=== PATIENT | male | born 1965 | race Caucasian/White ===

== ENCOUNTER → 2023-05-22 | Outpatient (CLI) | payer OTHER ==
--- NOTE | 2023-05-22 15:59 | P.SLEEP ---
History of Present Illness DATE: 05/22/2023 CONSULTATION/NEW PATIENT EVALUATION HISTORY OF PRESENT ILLNESS/SLEEP-WAKE EVALUATION: 58 year old gentleman had been evaluated in the sleep center for possible obstructive sleep apnea hypopnea syndrome. Patient has history of obstructive sleep apnea diagnosed more than 2 [place] At that time he was started on treatment with CPAP, but secondary to insurance problems returned CPAP unit. SLEEP SCHEDULE: Usually sleep schedule from 11 PM to 5:30 AM on weekdays and to to 8 AM on weekend. FALLING ASLEEP: Sometimes patient has difficulties to fall asleep. DURING SLEEP: Patient has multiple awakenings from sleep up to 6 times with episodes of weakness stop breathing during the sleep by his and gasping for air. Positive history of nocturia 4 times during the night. Positive history of restless leg symptoms and moving legs during the night. No history of hypnogogical hallucinations, sleep paralysis, or cataplexy. DURING THE DAY/WAKE STATE: During the day patient may fill episodes of anxiety. [place] sleepiness scale is 1. Usually patient doesn't take naps. PAST MEDICAL HISTORY: Hypertension, coronary artery disease, diabetes mellitus, hyperlipidemia. PAST SURGICAL HISTORY: Stent insertions to coronary arteries. MEDICATIONS: Isosorbide 60 mg once a day, metoprolol 25 mg twice a day, clopidogrel once a day, lisinopril 20 mg once a day, rosuvastatin 20 mg once a day, glipizide 5 mg once a day, metformin 1000 mg twice a day, tamsulosin 0.4 mg once a day. SOCIAL HISTORY: Positive history of smoking in the past, weight 5 years ago, no alcohol consumption.. FAMILY HISTORY: Heart problems. REVIEW OF SYSTEMS: Multiple awakenings from sleep with episodes of stop breathing. No fevers. No double vision. No recent chest pain. No shortness of breath. No abdominal pain. No bleeding episodes. No blood in urine. No seizure episodes. PHYSICAL EXAMINATION: GENERAL: A pleasant patient without any distress. VITAL SIGNS: BP 111/73 , HR 73 , RR 16 , weight 229.8 pounds, height 5 foot 7-1/4 inches, body mass index 35.6 . HEENT: PERRLA, EOMI. Evaluation of oropharynx showed tongue protrudes midline, low position of soft palate Mallampati 4. NECK: Supple. No JVD. Thyroid is not palpable. 19 inches in circumference. LUNGS: Clear to percussion and to auscultation. Good air exchange. No wheezing or rhonchi. HEART: S1, S2 regular. No murmurs, gallops or rubs. ABDOMEN: Soft and nontender. Bowel sounds are present. No organomegaly appreciated. EXTREMITIES: No clubbing or cyanosis. PHOTO EDITOR: Awake, alert, and oriented x3. Cranial nerves 2 to 7 intact. There is no fasciculation or atrophy noted. No focal deficits observed. ASSESSMENT: 1. Multiple awakenings from sleep with witnessed episodes of sleep apnea, history of obstructive sleep apnea in the past, similar low position of soft palate Mallampati 4, extremely wide neck 19 inches. Obstructive sleep apnea hypopnea syndrome. 2. Obesity BMI 35.6. 3. Hypertension. 4. History of coronary artery disease, status post stent insertions. 5 hyperlipidemia. 6 . Diabetes mellitus. 7. Restless leg symptoms. 8. Possible periodic limb movements. 9 . Status post surgical treatment for rotator cuff. PLAN: 1. Polysomnography for evaluation of patient's breathing during sleep. 2. CPAP/BiPAP titration if sleep study confirms obstructive sleep apnea- hypopnea syndrome. 3. Preferable position during sleep on the side. 4. No driving if patient feels any sleepiness. Patient is aware of civil and criminal liability for unsafe driving. 5. Sleep hygiene with regular sleep time for at least 7.5-8 hours. 6. Watching and losing weight. Thank you very much for referring this patient for consultation. Sincerely, Alexandre Robledo MD, PhD, FAASM. Diplomat of [place] [employer], Sleep Medicine Board by [place] [employer] [place] [employer] Data Warehouse Developer of [facility] - Sleep Note Sleep Note: Temperature: Pulse Rate: Respiratory Rate: Blood Pressure: SpO2: Height: Weight: BMI: Neck Circumference:
== END ==
LOC: 3 N SLEEP 15:16
PROVIDERS: ATTEND Internal Medicine
DX: G47.33 Obstructive sleep apnea (adult) (pediatric) (principal); I10 Essential (primary) hypertension; I25.10 Atherosclerotic heart disease of native coronary artery without angina pectoris; E66.9 Obesity, unspecified; E78.5 Hyperlipidemia, unspecified; E11.9 Type 2 diabetes mellitus without complications; G47.61 Periodic limb movement disorder; Z98.890 Other specified postprocedural states; Z87.891 Personal history of nicotine dependence; Z79.84 Long term (current) use of oral hypoglycemic drugs; Z79.02 Long term (current) use of antithrombotics/antiplatelets
CPT/HCPCS: 99202

== ENCOUNTER 2023-07-03 19:29 | Outpatient (CLI) | payer OTHER ==
--- NOTE | 2023-07-04 17:41 | P.PCN ---
Description of Procedure: POLYSOMNOGRAPHY REPORT PROCEDURE(S)/DATE(S): Polysomnography 07/03/2023 CLINICAL: Patient has been seen in the sleep center for evaluation of obstructive sleep apnea-hypopnea syndrome. Please see my consultation. Sleep study has been done for evaluation of patient breathing during the sleep. PROCEDURE: The standard montage for clinical polysomnography included the electroencephalogram, the electrooculogram, the mentalis surface electromyography and Lead II cardiography. The respiratory battery consisted of measurements of nasal/buccal air flow, pressure transducer measurements from nose, thoracic and/or abdominal effort and intercostal surface electromyography. Video monitoring has been done to check for any parasomnia events. Nocturnal oxyhemoglobin saturations were obtained by finger oximetry. Step-velazquez titration with positive airway pressure was utilized to control the respiratory events, if necessary. RESULTS: During the diagnostic sleep study sleep efficiency was extremely short 37.1 %. Latency to sleep onset was acceptable 10 min. Sleep architecture gentry wed stage NI was extremely high 38.4 %, Delta sleep was absent 0 %, REM sleep was extremely short 7.5 %. Respiratory channel showed 5 obstructive apneas, 2 mixed apneas, 13 central apneas, 21 hypopneas with lowest oxygen level 88%. Total apnea hypopnea index was 16.7. Heart rate was in the range between 49 and 58, average 52. EMG showed 111 periodic limb movements per hour with 00 is better micro-arousals per hour. IMPRESSIONS: 1. Moderate Obstructive sleep apnea hypopnea syndrome. 2. Severe periodic limb movements have been documented. Please see other impressions from consultation PLAN: 1. The patient will have PAP titration for correction of respiratory abnormalities during the sleep. 2. Losing weight program. 3. Sleep hygiene with regular time in bed for at least 7-1/2 hours. 4. No driving if feeling sleepiness. 5. Please check iron profile including ferritin level. Low level of iron may increase the risk for periodic limb movements. Thank you very much for allowing me to participate in the management of your patient. Sincerely, Alexandre Robledo MD, PhD, FAASM. Diplomat of [place] [employer], Sleep Medicine Board by [place] [employer] Backend Java Developer of [facility] [place]
== END 2023-07-04 04:30 | disposition home or self-care (01) ==
LOC: 3 N SLEEP 19:29
PROVIDERS: ATTEND Internal Medicine
DX: G47.33 Obstructive sleep apnea (adult) (pediatric) (principal); G47.61 Periodic limb movement disorder
CPT/HCPCS: 95810

== ENCOUNTER 2023-08-20 19:45 | Outpatient (CLI) | payer OTHER ==
--- NOTE | 2023-08-21 13:44 | P.PCN ---
Description of Procedure: CLINICAL: Titration with positive air pressure has been done for correction of respiratory abnormalities during sleep. DESCRIPTION OF PROCEDURE: The standard montage for clinical polysomnography included the electroencephalogram, the electrocardiogram, the mentalis surface electromyography and Lead II cardiography. The respiratory battery consisted of measurements of nasal /buccal air flow, pressure transducer measurements from the nose, thoracic and /or abdominal effort and intercostal surface electromyography. Video monitoring has been done to check for any parasomnia events. Nocturnal oxyhemoglobin saturations were obtained by finger oximetry. Step-velazquez titration with positive airway pressure was utilized to control respiratory events. Raw data of sleep recording has been reviewed and is adequate. RESULTS: Sleep efficiency was extremely short 44.7%. Latency to sleep onset was significantly long 68.0 minutes.]. Sleep architecture showed stage N1 was normal 8.5%, Delta sleep was absent 0%, REM sleep was absent 0%. Heart rate was minimum 58 BPM, maximum 67 BPM, average 62 BPM. EMG showed 0 periodic limb movements per hour. PAP titration have been done with CPAP up to the pressure 8 cm H2O. The best results were at the pressure 8-9 cm H2O. Apnea hypopnea index reduced to 0. IMPRESSION: 1. Obstructive sleep apnea hypopnea syndrome on controle with PAP treatment. 2. No periodic limb movements have been documented. Please see other impressions from consultation. PLAN: 1. The patient will have treatment with positive air pressure equipment with the level of pressure AutoPAP 6-10 cm H2O and should use it every night for the whole night. 2. Watching and losing weight. 3. Sleep hygiene with regular time in bed for at least 8 hours. 4. No driving if feeling any sleepiness. 5. I will see the patient for follow up visit to explain the results of the test, recommendations, check compliance with treatment and make any necessary adjustment related to mask fitting, pressure and humidification. Thank you very much for allowing me to participate in the management of your patient. Sincerely, Alexandre Robledo MD, PhD, FAASM Diplomat of [place] [employer] Sleep Medicine Board of [place] [employer] Manager Audio of [facility] [place]
== END 2023-08-21 03:45 | disposition home or self-care (01) ==
LOC: 3 N SLEEP 19:45
PROVIDERS: ATTEND Internal Medicine
DX: G47.33 Obstructive sleep apnea (adult) (pediatric) (principal)
CPT/HCPCS: 95811

== ENCOUNTER → 2023-12-04 | Outpatient (CLI) | payer OTHER ==
--- NOTE | 2023-12-04 12:24 | XR ---
EXAMINATION TYPE: XR KUB DATE OF EXAM: 12/04/2023 Comparison: None Clinical History: 58-year-old male N20.1 CALCULUS OF URETER Findings: No suspicious calcification clearly identified. Nonobstructive bowel gas pattern. There is mild to mo derate stool in the rectum. Impression: No definite suspicious calcifications radiographically apparent.
== END | disposition home or self-care (01) ==
LOC: RADXRMAIN 09:01
PROVIDERS: ATTEND Urology
DX: N20.1 Calculus of ureter (principal)
CPT/HCPCS: 74018

== ENCOUNTER → 2023-12-26 | Outpatient (CLI) | payer OTHER ==
--- NOTE | 2023-12-26 16:41 | US ---
EXAMINATION TYPE: US kidneys/renal and bladder DATE OF EXAM: 12/26/2023 COMPARISON: NONE CLINICAL INDICATION: Male, 58 years old with history of N13.2 HYDRONEPHROSIS WITH RENAL AND URETERAL CALCU; pt states renal stones found on CT at [facility] EXAM MEASUREMENTS: Right Kidney: 10.5 x 6.3 x 6.9 cm Left Kidney: 11.3 x 5.8 x 6.4 cm Right Kidney: echogenic area seen in sup pole measuring 0.5cm Left Kidney: No hydronephrosis or masses seen Bladder: wnl Bilateral Jets seen: yes There is no evidence for hydronephrosis at this point in time. No masses are identified. The urina ry bladder is anechoic. Bilateral ureteral jets are seen. IMPRESSION: Nephrolithiasis right kidney.
== END | disposition home or self-care (01) ==
LOC: RADUSWWP 16:04
PROVIDERS: ATTEND Urology
DX: N13.2 Hydronephrosis with renal and ureteral calculous obstruction (principal)
CPT/HCPCS: 76770

== ENCOUNTER 2024-08-01 09:39 | Observation (INO) | payer OTHER ==
--- NOTE | 2024-08-01 10:12 | ED ---
General Adult HPI - General Chief complaint: Abdominal Pain Stated complaint: abd pain Time Seen by Provider: 08/01/24 09:40 Source: patient, RN notes reviewed, old records reviewed Mode of arrival: ambulatory Limitations: no limitations - History of Present Illness Initial comments: This is a 59-year-old male who presents to the emergency department complaining of abdominal pain on the upper abdomen from right to left. Patient states he had a history of pancreatitis. Patient states he has not drank in 6 years. Patient states the pain is on and off. Patient denies any fever or chills. Patient denies any chest pain difficulty breathing shortness of breath. - Related Data Allergies Allergy/AdvReac Type Severity Reaction Status Date / Time No Known Allergies Allergy Verified 08/01/24 09:44 Review of Systems ROS Statement: Those systems with pertinent positive or pertinent negative responses have been documented in the HPI. ROS Other: All systems not noted in ROS Statement are negative. Past Medical History Past Medical History: Diabetes Mellitus, Hyperlipidemia, Hypertension Additional Past Medical History / Comment(s): Pancreatitis History of Any Multi-Drug Resistant Organisms: None Reported Additional Past Surgical History / Comment(s): Stents, shoulder surgery Past Psychological History: No Psychological Hx Reported Smoking Status: Never smoker Past Alcohol Use History: None Reported Past Drug Use History: Marijuana General Exam - General Exam Comments Initial Comments: GENERAL: Patient is well-developed and well-nourished. Patient is nontoxic and well- hydrated and is in mild distress. ENT: Neck is soft and supple. No significant lymphadenopathy is noted. Oropharynx is clear. Moist mucous membranes. Neck has full range of motion without eliciting any pain. EYES: The sclera were anicteric and conjunctiva were pink and moist. Extraocular movements were intact and pupils were equal round and reactive to light. Eyelids were unremarkable. PULMONARY: Unlabored respirations. Good breath sounds bilaterally. No audible rales rhonchi or wheezing was noted. CARDIOVASCULAR: There is a regular rate and rhythm without any murmurs gallops or rubs. ABDOMEN: Patient has tenderness across the upper abdomen from right all the way to the left side. SKIN: Skin is clear with no lesions or rashes and otherwise unremarkable. NEUROLOGIC: Patient is alert and oriented x3. Cranial nerves II through XII are grossly intact. Motor and sensory are also intact. Normal speech, volume and content. Symmetrical smile. MUSCULOSKELETAL: Normal extremities with adequate strength and full range of motion. No lower e xtremity swelling or edema. No calf tenderness. LYMPHATICS: No significant lymphadenopathy is noted PSYCHIATRIC: Normal psychiatric evaluation. Limitations: no limitations Course Vital Signs 08/01/24 08/01/24 09:39 11:40 Temperature 97.4 F L Pulse Rate 53 L 43 L Respiratory 18 20 Rate Blood Pressure 142/77 123/74 O2 Sat by Pulse 100 98 Oximetry Medical Decision Making - Medical Decision Making EKG is interpreted by myself but EKG shows a sinus bradycardia 47 bpm MD was 160 QRS is 97 QT interval is 412 QTc is 376. Patient's EKG shows no ST segment elevation or depression Was pt. sent in by a medical professional or institution (, PA, SECURITIES ATTORNEY, urgent care, hospital, or custodial...) When possible be specific @ -No Did you speak to anyone other than the patient for history (EMS, parent, family, police, friend...)? What history was obtained from this source @ -No Did you review nursing and triage notes (agree or disagree)? Why? @ -I reviewed and agree with nursing and triage notes Were old charts reviewed (outside hosp., previous admission, EMS record, old EKG, old radiological studies, urgent care reports/EKG's, custodial records)? Report findings @ -No old charts were reviewed Differential Diagnosis? @ -Differential Abdominal Pain Men: Appendicitis, cholecystitis, diverticulosis, ischemic bowel, pancreatitis, hepatitis, UTI, gastroenteritis, AAA, incarcerated hernia, bowel obstruction, constipation, inflammatory bowel, hepatitis, peptic ulcer disease, splenic infarction, perforated viscus, testicular torsion, this is not meant to be an all-inclusive list EKG interpreted by me (3pts min.). @ -As above X-rays interpreted by me (1pt min.). @ -None done CT interpreted by me (1pt min.). @ -CAT scan of the abdomen pelvis showed no acute dramality U/S interpreted by me (1pt. min.). @ -Ultrasound showed no acute abnormality with the gallbladder What testing was considered but not performed or refused? (CT, X-rays, U/S, labs)? Why? @ -None What meds were considered but not given or refused? Why? @ -None Did you discuss the management of the patient with other professionals (professionals i.e. , PA, SECURITIES ATTORNEY, lab, RT, psych nurse, social media sr strategy manager, pv design and installation technician, teacher, geospatial program management officer, director case management)? Give summary @ -No Was smoking cessation discussed for >3mins.? @ -No Was critical care preformed (if so, how long)? @ -No Were there social determinants of health that impacted care today? How? (Homelessness, low income, unemployed, alcoholism, drug addiction, transportation, low edu. Level, literacy, decrease access to med. care, [facility], rehab)? @ -No Was there de-escalation of care discussed even if they declined (Discuss DNR or withdrawal of care, Hospice)? DNR status @ -No What co-morbidities impacted this encounter? (DM, HTN, Smoking, COPD, CAD, Cancer, CVA, ARF, Chemo, Hep., AIDS, mental health diagnosis, sleep apnea, morbid obesity)? @ -None Was patient admitted / discharged? Hospital course, mention meds given and route, prescriptions, significant lab abnormalities, going to OR and other pertinent info. @ -Patient was bradycardic at rest at 43-45 beats a minute. Patient was asymptomatic with this. Patient continued to have abdominal pain needed multiple pain medications and needed nausea meds throughout his stay. I recommended that the patient stay in the hospital. Patient was willing to stay cardiology will be consulted. Undiagnosed new problem with uncertain prognosis? @ -No Drug Therapy requiring intensive monitoring for toxicity (Heparin, Nitro, Insulin, Cardizem)? @ -No Were any procedures done? @ -No Diagnosis/symptom? @ -Upper quadrant abdominal pain Acute, or Chronic, or Acute on Chronic? @ -Acute Uncomplicated (without systemic symptoms) or Complicated (systemic symptoms)? @ -Complicated Side effects of treatment? @ -No Exacerbation, Progression, or Severe Exacerbation? @ -No Poses a threat to life or bodily function? How? (Chest pain, USA, MD, pneumonia, PE, COPD, DKA, ARF, appy, cholecystitis, CVA, Diverticulitis, Homicidal, Suicidal, threat to staff... and all critical care pts) @ -No Diagnosis/symptom? @ -Bradycardia Acute, or Chronic, or Acute on Chronic? @ -Acute Uncomplicated (without systemic symptoms) or Complicated (systemic symptoms)? @ -Complicated Side effects of treatment? @ -None Exacerbation, Progression, or Severe Exacerbation] @ -No Poses a threat to life or bodily function? @ -Yes this could lead to poor perfusion and endorgan dysfunction - Lab Data Result diagrams: 08/01/24 10:02 08/01/24 10:02 Lab Results 08/01/24 08/01/24 08/01/24 Range/Units 10:02 10:02 10:02 WBC 9.7 (3.8-10.6) k/uL RBC 5.52 (4.30-5.90) m/uL Hgb 16.0 (13.0-17.5) gm/dL Hct 50.2 (39.0-53.0) % MCV 91.0 (80.0-100.0) fL MCH 29.0 (25.0-35.0) pg MCHC 31.9 (31.0-37.0) g/dL RDW 14.3 (11.5-15.5) % Plt Count 240 (150-450) k/uL MPV 8.7 Neutrophils % 50 % Lymphocytes % 42 % Monocytes % 5 % Eosinophils % 2 % Basophils % 0 % Neutrophils # 4.8 (1.3-7.7) k/uL Lymphocytes # 4.0 (1.0-4.8) k/uL Monocytes # 0.5 (0-1.0) k/uL Eosinophils # 0.2 (0-0.7) k/uL Basophils # 0.0 (0-0.2) k/uL Sodium 143 (137-145) mmol/L Potassium 4.1 (3.5-5.1) mmol/L Chloride 106 (98-107) mmol/L Carbon Dioxide 27 (22-30) mmol/L Anion Gap 10 mmol/L BUN 12 (9-20) mg/dL Creatinine 0.86 (0.66-1.25) mg/dL Est GFR (CKD-EPI)AfAm >90 (>60 ml/min/1.73 sqM) Est GFR (CKD-EPI)NonAf >90 (>60 ml/min/1.73 sqM) Glucose 143 H (74-99) mg/dL POC Glucose (mg/dL) (70-110) mg/dL POC Glu Concrete Rod Buster ID Plasma Lactic Acid Maxx 2.0 (0.7-2.0) mmol/L Calcium 9.8 (8.4-10.2) mg/dL Total Bilirubin 0.6 (0.2-1.3) mg/dL AST 26 (17-59) U/L ALT 27 (4-49) U/L Alkaline Phosphatase 64 (38-126) U/L Total Protein 6.9 (6.3-8.2) g/dL Albumin 4.3 (3.5-5.0) g/dL Amylase 120 H (30-110) U/L Lipase 371 H (23-300) U/L 08/01/24 Range/Units 13:15 WBC (3.8-10.6) k/uL RBC (4.30-5.90) m/uL Hgb (13.0-17.5) gm/dL Hct (39.0-53.0) % MCV (80.0-100.0) fL MCH (25.0-35.0) pg MCHC (31.0-37.0) g/dL RDW (11.5-15.5) % Plt Count (150-450) k/uL MPV Neutrophils % % Lymphocytes % % Monocytes % % Eosinophils % % Basophils % % Neutrophils # (1.3-7.7) k/uL Lymphocytes # (1.0-4.8) k/uL Monocytes # (0-1.0) k/uL Eosinophils # (0-0.7) k/uL Basophils # (0-0.2) k/uL Sodium (137-145) mmol/L Potassium (3.5-5.1) mmol/L Chloride (98-107) mmol/L Carbon Dioxide (22-30) mmol/L Anion Gap mmol/L BUN (9-20) mg/dL Creatinine (0.66-1.25) mg/dL Est GFR (CKD-EPI)AfAm (>60 ml/min/1.73 sqM) Est GFR (CKD-EPI)NonAf (>60 ml/min/1.73 sqM) Glucose (74-99) mg/dL POC Glucose (mg/dL) 86 (70-110) mg/dL POC Glu Concrete Rod Buster ID Ming Flores Plasma Lactic Acid Maxx (0.7-2.0) mmol/L Calcium (8.4-10.2) mg/dL Total Bilirubin (0.2-1.3) mg/dL AST (17-59) U/L ALT (4-49) U/L Alkaline Phosphatase (38-126) U/L Total Protein (6.3-8.2) g/dL Albumin (3.5-5.0) g/dL Amylase (30-110) U/L Lipase (23-300) U/L Disposition Clinical Impression: Abdominal pain, Bradycardia Disposition: ADMITTED IP TO THIS HOSP Referrals: Nicholas James [Primary Care Provider] - 1-2 days Time of Disposition: 14:05
[2024-08-01] MEDS: ONDANSETRON 4 MG/2 ML VIAL IVP STA ×2 (10:18→13:11)
[2024-08-01] MEDS: SODIUM CHLORIDE 0.9% 500 ML 500 ML IV STA (10:19)
[2024-08-01] MEDS: HYDROmorphone 0.5 MG/0.5 ML SYRINGE IVP STA ×2 (10:19→12:02)
[2024-08-01 10:22] LABS: Basophils % (A) 0 %; Eosinophils # (A) 0.2 k/uL (0-0.7); Eosinophils % (A) 2 %; HCT 50.2 % (39.0-53.0); Lymphocytes % (A) 42 %; MCHC 31.9 g/dL (31.0-37.0); Mean Platelet Volume 8.7; Monocytes # (A) 0.5 k/uL (0-1.0); Monocytes % (A) 5 %; Neutrophils # (A) 4.8 k/uL (1.3-7.7); Neutrophils % (A) 50 %; Platelet Count 240 k/uL (150-450); RBC 5.52 m/uL (4.30-5.90); RDW 14.3 % (11.5-15.5); WBC 9.7 k/uL (3.8-10.6)
[2024-08-01 10:37] LABS: ALT 27 U/L (4-49); AST 26 U/L (17-59); African American GFR (CKD) >90 (>60 ml/min/1.73 sqM); Albumin 4.3 g/dL (3.5-5.0); Alkaline Phosphatase 64 U/L (38-126); Amylase 120 U/L (30-110); Anion Gap 10 mmol/L; Blood Urea Nitrogen 12 mg/dL (9-20); Calcium 9.8 mg/dL (8.4-10.2); Carbon Dioxide 27 mmol/L (22-30); Chloride 106 mmol/L (98-107); Glucose 143 mg/dL (74-99); Lipase 371 U/L (23-300); Non-African American GFR(CKD) >90 (>60 ml/min/1.73 sqM); Potassium 4.1 mmol/L (3.5-5.1); Sodium 143 mmol/L (137-145); Total Bilirubin 0.6 mg/dL (0.2-1.3); Total Protein 6.9 g/dL (6.3-8.2)
--- NOTE | 2024-08-01 11:57 | US ---
EXAMINATION TYPE: US gallbladder DATE OF EXAM: 08/01/2024 COMPARISON: NONE CLINICAL INDICATION: Male, 59 years old with history of Upper abdominal pain; RUQ pain exam limitatio ns due to over lying bowel gas. TECHNIQUE: Grayscale and color Doppler imaging of the right upper quadrant was performed. FINDINGS: EXAM MEASUREMENTS: Liver Length: 18 cm Gallbladder Wall: .3 cm CBD: .3 cm Right Kidney: 10.7 x 5.5 x 4.3 cm TRANSMITTER CHIEF NOTES: Pancreas: Obscured by bowel gas Liver: Increased attenuation hypoechoic area seen adjacent to gallbladder suggestive of focal sparri ng measuring 1.1 x 1.6 x .9 cm. Gallbladder: No stones seen Evidence for sonographic Kong's sign: No CBD: wnl Right Kidney: No hydronephrosis or masses seen The pancreas is obscured by overlying bowel gas. Liver demonstrates increased diffuse attenuation wit h region of focal fatty sparing adjacent to the gallbladder. No cholelithiasis, wall thickening or st randing fluid. Negative sonographic Kong sign. Common bile duct is within normal limits. Right kidn ey demonstrates no hydronephrosis, nephrolithiasis or solid mass. IMPRESSION: 1. No ultrasound evidence for an acute process. 2. Hepatic steatosis with focal fatty sparing adjacent to the gallbladder. [facility], , 08/01/2024 11:54 AM
[2024-08-01 13:18] LABS: Glucose,Whole Blood 86 mg/dL (70-110)
--- NOTE | 2024-08-01 13:31 | CT ---
EXAMINATION TYPE: CT abdomen pelvis w con CT DLP: 1305.8 mGycm, Automated exposure control for dose reduction was used. DATE OF EXAM: 08/01/2024 1:11 PM COMPARISON: Gallbladder ultrasound 08/01/2024 CLINICAL INDICATION:Male, 59 years old with history of Upper abdominal pain; ABD PAIN TECHNIQUE: Standard CT of the abdomen and pelvis following the administration of 100 cc of Isovue 3 00 IV contrast material. Coronal and sagittal reformats were performed. FINDINGS: Incidental ring artifact. LOWER CHEST: Unremarkable ABDOMEN LIVER: Unremarkable GALLBLADDER AND BILE DUCTS: Unremarkable. PANCREAS: Unremarkable. SPLEEN: Unremarkable. ADRENAL GLANDS: Unremarkable. KIDNEYS AND URETERS: No evidence of hydronephrosis or renal calculus. The kidneys enhance symmetrical ly. Contrast is demonstrated within both collecting systems on delayed phase. Subcentimeter bilateral hypodense foci within both kidneys likely representing cysts. PELVIS BLADDER: Unremarkable REPRODUCTIVE: Prostate is enlarged in size measuring 5.4 cm in transverse dimension. ABDOMEN & PELVIS STOMACH AND BOWEL: Stomach and duodenum are unremarkable. Scattered distal colonic diverticula withou t evidence for acute diverticulitis. The appendix is within normal limits. No focal bowel wall thicke aisha or surrounding inflammatory changes. No evidence of bowel obstruction. PERITONEUM: No evidence of pneumoperitoneum or free fluid. VASCULATURE: No evidence of aortic aneurysm. MUSCULOSKELETAL: No acute osseous abnormalities. Degenerative changes of the pubic symphysis. Pseudoa rticulation of the left L5 transverse process with the sacrum. Grade 1 anterolisthesis of L4 on L5 wi thout evidence of pars defects. LYMPH NODES: No evidence for lymphadenopathy. SOFT TISSUE/ABDOMINAL WALL: Unremarkable IMPRESSION: 1. No CT evidence for acute abdominopelvic process. 2. Colonic diverticulosis without evidence for acute diverticulitis. 3. Prostatomegaly. [facility], , 08/01/2024 1:29 PM
[2024-08-01] MEDS: SODIUM CHLORIDE 0.9% 1,000 ML IV ONE (14:11)
[2024-08-01] MEDS: LORazepam 2 MG/ML INJ IV STA (14:13)
[2024-08-01] MEDS: ONDANSETRON 4 MG/2 ML VIAL IVP PRN (17:06)
[2024-08-01] MEDS: HYDROmorphone 0.5 MG/0.5 ML SYRINGE IVP PRN (17:07)
[2024-08-01 18:47] LABS: Glucose,Whole Blood 81 mg/dL (70-110)
[2024-08-01] MEDS: METOCLOPRAMIDE 5 MG/ML 2 ML VIAL IVP STA (20:13)
[2024-08-01] MEDS: DEXTROSE 5%-0.45% NACL 1,000 ML IV SCH (20:34)
[2024-08-01] MEDS: ATORVASTATIN 40 MG TAB PO SCH (21:10)
[2024-08-02] MEDS: HYDROcodone/APAP 5-325MG 1 EACH TAB PO PRN (01:07)
[2024-08-02 02:52] LABS: Glucose,Whole Blood 114 mg/dL (70-110)
[2024-08-02 03:06] VITALS: PULSE 48
[2024-08-02 06:21] VITALS: BP 113/68; RESP 14; TEMP 97.2
[2024-08-02 07:43] LABS: Glucose,Whole Blood 134 mg/dL (70-110)
[2024-08-02] MEDS: TAMSULOSIN 0.4 MG CAP.ER.24H PO SCH (11:29)
--- NOTE | 2024-08-02 11:35 | P.HPIM ---
History of Present Illness Patient is a 59-year-old male came in with complaints of epigastric abdominal pain burning sensation. Patient has CT of the abdomen and ultrasound of the abdomen both of not significant patient has mild elevation of lipase but this is a nonspecific elevation. Patient has history of coronary artery disease because of which ER physician consulted cardiology. Cardiology evaluated patient and cleared him for discharge patient has sinus bradycardia without any acute ST-T wave changes on EKG troponins are not elevated. Patient had stents in the past. Patient is hypotensive he is on lisinopril at home 20 mg along with metoprolol 25 sustained-release twice a day. REVIEW OF SYSTEMS: All other systems are negative except those mentioned in the HPI PHYSICAL EXAMINATION: GENERAL: The patient is alert and oriented x3, not in any acute distress. Well developed, well nourished. HEENT: Pupils are round and equally reacting to light. EOMI. No scleral icterus. No conjunctival pallor. Normocephalic, atraumatic. No pharyngeal erythema. No thyromegaly. CARDIOVASCULAR: S1 and S2 present. No murmurs, rubs, or gallops. PULMONARY: Chest is clear to auscultation, no wheezing or crackles. ABDOMEN: Soft, nontender, nondistended, normoactive bowel sounds. No palpable organomegaly. MUSCULOSKELETAL: No joint swelling or deformity. EXTREMITIES: No cyanosis, clubbing, or pedal edema. NEUROLOGICAL: Gross neurological examination did not reveal any focal deficits. SKIN: No rashes. Assessment and plan -Epigastric abdominal pain probably secondary to peptic ulcer disease I do not believe patient has pancreatitis patient is clinically doing well pain-free patient will be given a dose of Protonix will be discharged on Protonix will start him on diet will be discharged today -Rule out acute coronary syndromes -Sinus bradycardia secondary to metoprolol will decrease the dose to once a day 25 mg sustained-release -Hypertension patient is hypotensive cutting down the dose of lisinopril to 10 mg -Type 2 diabetes mellitus -Coronary artery disease with stents in the past Patient will be discharged to follow-up with PCP as an outpatient Past Medical History Past Medical History: Diabetes Mellitus, Hyperlipidemia, Hypertension Additional Past Medical History / Comment(s): Pancreatitis History of Any Multi-Drug Resistant Organisms: None Reported Additional Past Surgical History / Comment(s): Stents, shoulder surgery Past Psychological History: No Psychological Hx Reported Smoking Status: Never smoker Past Alcohol Use History: None Reported Past Drug Use History: Marijuana Medications and Allergies Home Medications Medication Instructions Recorded Confirmed Type Clopidogrel [Plavix] 75 mg PO DAILY 08/01/24 08/01/24 History Dapagliflozin Propanediol [Farxiga] 10 mg PO DAILY 08/01/24 08/01/24 History HYDROcodone/APAP 5-325MG [[place] 1 tab PO TID PRN 08/01/24 08/01/24 History 5-325] Isosorbide Mononitrate ER [Imdur] 60 mg PO DAILY 08/01/24 08/01/24 History Ondansetron [Zofran] 4 mg PO Q6H PRN 08/01/24 08/01/24 History Rosuvastatin [Crestor] 20 mg PO HS 08/01/24 08/01/24 History Tamsulosin [Flomax] 0.4 mg PO DAILY 08/01/24 08/01/24 History glipiZIDE XL [Glucotrol XL] 5 mg PO DAILY 08/01/24 08/01/24 History metFORMIN HCL [Glucophage] 1,000 mg PO BID 08/01/24 08/01/24 History Metoprolol Succinate (ER) [Toprol 25 mg PO DAILY #0 08/02/24 08/01/24 Rx XL] Pantoprazole [Protonix] 40 mg PO DAILY #14 tab 08/02/24 Rx lisinopriL [Zestril] 10 mg PO DAILY #0 08/02/24 08/01/24 Rx Allergies Allergy/AdvReac Type Severity Reaction Status Date / Time No Known Allergies Allergy Verified 08/01/24 14:04 Physical Exam Vitals: Vital Signs Temp Pulse Resp BP Pulse Ox 08/02/24 06:18 97.2 F L 48 L 14 113/68 96 08/02/24 03:02 98.0 F 48 L 16 110/63 97 08/02/24 01:00 45 L 19 113/70 98 08/01/24 21:07 49 L 18 130/78 96 08/01/24 17:11 47 L 18 134/80 99 08/01/24 11:40 43 L 20 123/74 98 Results CBC & Chem 7: 08/01/24 10:02 08/01/24 10:02 Labs: Abnormal Lab Results - Last 24 Hours (Table) 08/01/24 08/02/24 08/02/24 Range/Units 21:12 02:50 07:41 POC Glucose (mg/dL) 114 H 134 H (70-110) mg/dL Lipase 422 H (23-300) U/L
[2024-08-02] MEDS: PANTOPRAZOLE 40 MG/10 ML VIAL IVP SCH (11:36)
[2024-08-02] MEDS: ISOSORBIDE MONONITRATE ER 60 MG TAB.ER.24H PO SCH (11:36)
[2024-08-02] MEDS: DAPAGLIFLOZIN PROPANEDIOL 10 MG TABLET PO SCH (11:36)
[2024-08-02] MEDS: METOPROLOL SUCCINATE (ER) 25 MG TAB.ER.24H PO SCH (11:36)
--- NOTE | 2024-08-02 11:36 | P.DS ---
Providers Date of admission: 08/01/24 14:07 Attending physician: Emi Madsen Consults: 08/01/24 14:05 Consult Physician Urgent Consulting Provider: [facility] Consult Reason/Comments: Bradycardia Do you want consulting provider notified?: Yes Primary care physician: Nicholas Guerrero [facility] Course: Patient is a 59-year-old male came in with complaints of epigastric abdominal pain burning sensation. Patient has CT of the abdomen and ultrasound of the abdomen both of not significant patient has mild elevation of lipase but this is a nonspecific elevation. Patient has history of coronary artery disease because of which ER physician consulted cardiology. Cardiology evaluated patient and cleared him for discharge patient has sinus bradycardia without any acute ST-T wave changes on EKG troponins are not elevated. Patient had stents in the past. Patient is hypotensive he is on lisinopril at home 20 mg along with metoprolol 25 sustained-release twice a day. REVIEW OF SYSTEMS: All other systems are negative except those mentioned in the HPI PHYSICAL EXAMINATION: GENERAL: The patient is alert and oriented x3, not in any acute distress. Well developed, well nourished. HEENT: Pupils are round and equally reacting to light. EOMI. No scleral icterus. No conjunctival pallor. Normocephalic, atraumatic. No pharyngeal erythema. No thyromegaly. CARDIOVASCULAR: S1 and S2 present. No murmurs, rubs, or gallops. PULMONARY: Chest is clear to auscultation, no wheezing or crackles. ABDOMEN: Soft, nontender, nondistended, normoactive bowel sounds. No palpable organomegaly. MUSCULOSKELETAL: No joint swelling or deformity. EXTREMITIES: No cyanosis, clubbing, or pedal edema. NEUROLOGICAL: Gross neurological examination did not reveal any focal deficits. SKIN: No rashes. Assessment and plan -Epigastric abdominal pain probably secondary to peptic ulcer disease I do not believe patient has pancreatitis patient is clinically doing well pain-free patient will be given a dose of Protonix will be discharged on Protonix will start him on diet will be discharged today -Rule out acute coronary syndromes -Sinus bradycardia secondary to metoprolol will decrease the dose to once a day 25 mg sustained-release -Hypertension patient is hypotensive cutting down the dose of lisinopril to 10 mg -Type 2 diabetes mellitus -Coronary artery disease with stents in the past Patient will be discharged to follow-up with PCP as an outpatient Plan - Discharge Summary New Discharge Prescriptions: New Pantoprazole [Protonix] 40 mg PO DAILY #14 tab Continue metFORMIN HCL [Glucophage] 1,000 mg PO BID Tamsulosin [Flomax] 0.4 mg PO DAILY HYDROcodone/APAP 5-325MG [[place] 5-325] 1 tab PO TID PRN PRN Reason: Pain Dapagliflozin Propanediol [Farxiga] 10 mg PO DAILY Clopidogrel [Plavix] 75 mg PO DAILY Rosuvastatin [Crestor] 20 mg PO HS Ondansetron [Zofran] 4 mg PO Q6H PRN PRN Reason: Nausea And Vomiting Isosorbide Mononitrate ER [Imdur] 60 mg PO DAILY glipiZIDE XL [Glucotrol XL] 5 mg PO DAILY Changed Metoprolol Succinate (ER) [Toprol XL] 25 mg PO DAILY #0 lisinopriL [Zestril] 10 mg PO DAILY #0 Discharge Medication List Clopidogrel [Plavix] 75 mg PO DAILY 08/01/24 [History] Dapagliflozin Propanediol [Farxiga] 10 mg PO DAILY 08/01/24 [History] HYDROcodone/APAP 5-325MG [[place] 5-325] 1 tab PO TID PRN 08/01/24 [History] Isosorbide Mononitrate ER [Imdur] 60 mg PO DAILY 08/01/24 [History] Ondansetron [Zofran] 4 mg PO Q6H PRN 08/01/24 [History] Rosuvastatin [Crestor] 20 mg PO HS 08/01/24 [History] Tamsulosin [Flomax] 0.4 mg PO DAILY 08/01/24 [History] glipiZIDE XL [Glucotrol XL] 5 mg PO DAILY 08/01/24 [History] metFORMIN HCL [Glucophage] 1,000 mg PO BID 08/01/24 [History] Metoprolol Succinate (ER) [Toprol XL] 25 mg PO DAILY #0 08/02/24 [Rx] Pantoprazole [Protonix] 40 mg PO DAILY #14 tab 08/02/24 [Rx] lisinopriL [Zestril] 10 mg PO DAILY #0 08/02/24 [Rx] Follow up Appointment(s)/Referral(s): Nicholas Jaems [Primary Care Provider] - 3 Days Discharge Disposition: HOME SELF-CARE
--- NOTE | 2024-08-02 12:06 | P.CRDCN ---
History of Present Illness Consult date: 08/02/24 Reason for Consult (text): Bradycardia History of present illness: This is a 59-year-old male patient of Dr. Pemberton with past medical history of CAD status post PCI to the left circumflex in 2019 in the setting of a non-ST MICHELLE with [employer]VERT[employer] TITLES of the RCA and mild LAD disease, hypertension, dyslipidemia, diabetes mellitus type 2, bradycardia, mild MR, obstructive sleep apnea on CPAP, history of pancreatitis. We have been asked to evaluate the patient for bradycardia. Patient presented to the hospital due to concern for pancreatitis. He was experiencing nausea, vomiting and abdominal pain. He denies chest pain or pressure. Patient states the pain was in his upper abdomen and he has been feeling better after received pain medications. He states the pain started about a week ago. He also experienced sweats. Blood pressure 113/68, heart rate 48, pulse ox 96% on room air. Heart rate has been running in the high 40s. Patient is seen today in the emergency center waiting for a bed on the cardiac stepdown unit. Patient is a nonsmoker, he quit alcohol 6-7 years ago. -EKG: Sinus bradycardia 47 bpm -Gallbladder ultrasound: No evidence of acute process. Hepatic steatosis with focal fatty sparing adjacent to the gallbladder. -CT of the abdomen pelvis with contrast: No acute process. Colonic diverticulosis without diverticulitis. Prostatomegaly. -Laboratory studies: CBC, electrolytes, renal function, liver function test all within normal limits. Troponin negative x 2 draws. Amylase 120 and lipase 422. -Home cardiac medications: Plavix 75 mg daily, Farxiga 10 mg daily, isosorbide mononitrate 60 mg daily, lisinopril 20 mg daily, Toprol XL 25 mg twice daily, rosuvastatin 20 mg at bedtime. -Cardiac catheterization history in the setting of NSTEMI in 2020 status post PCI to the left circumflex with MARK, [employer] TIT[employer] of the RCA and mild LAD disease. Performed in [place] by Dr. Moya -Echocardiogram performed in the office on 06/25/2023 revealed EF of 55 to 60%, mild left ventricular hypertrophy. Mild mitral regurgitation. Mild tricuspid regurgitation. PASP 36 mmHg. -Event monitor for 3 days in November 2023: Average heart rate 63 bpm, maximum 130 bpm. 50% of the time bradycardic. Less than 1% PAC/PVC burden. No pauses. No atrial fibrillation. Patient reported events with normal sinus rhythm. Review Of Systems: At the time of my exam: CONSTITUTIONAL: Denies fever or chills. HEENT: Denies blurred vision, vision changes, or eye pain. Denies hemoptysis CARDIOVASCULAR: Denies chest pain. Denies orthopnea. Denies PND. Denies pa lpitations RESPIRATORY: Denies shortness of breath. GASTROINTESTINAL: Denies abdominal pain. Denies nausea or vomiting. HEMATOLOGIC: Denies bleeding disorders. GENITOURINARY: Denies any blood in urine. SKIN: Denies puritis. Denies rash. Physical examination: Gen: This is a 59-year-old male in no acute distress VS: reviewed HEENT: Head is atraumatic, normocephalic. Pupils equal, round. Sclerae is anicteric. NECK: Supple. No JVD. LUNGS: Clear to auscultation. No wheezes or rhonchi. No intercostal retractions. HEART: Regular rate and rhythm. No murmur. ABDOMEN: Soft No tenderness. EXTREMITIES: No pedal edema. No calf tenderness. NEUROLOGICAL: Patient is awake, alert and oriented x3. Assessment: Bradycardia, chronic History of CAD with PCI in the left circumflex and known [employer] TIT[employer] of the RCA and mild disease in the LAD Hypertension Dyslipidemia Diabetes mellitus type 2 Mild MR Obstructive sleep apnea on CPAP Plan: Resume patient's home cardiac medications No further cardiac workup at this time. Patient is cleared for discharge from cardiology and may follow-up with Dr. Pemberton in the office in 2 weeks. Thank you kindly for this consultation. Nurse practitioner note has been reviewed, I agree with documented findings and plan of care. Patient was seen and examined. Past Medical History Past Medical History: Diabetes Mellitus, Hyperlipidemia, Hypertension Additional Past Medical History / Comment(s): Pancreatitis History of Any Multi-Drug Resistant Organisms: None Reported Additional Past Surgical History / Comment(s): Stents, shoulder surgery Past Psychological History: No Psychological Hx Reported Smoking Status: Never smoker Past Alcohol Use History: None Reported Past Drug Use History: Marijuana Medications and Allergies Home Medications Medication Instructions Recorded Confirmed Type Clopidogrel [Plavix] 75 mg PO DAILY 08/01/24 08/01/24 History Dapagliflozin Propanediol [Farxiga] 10 mg PO DAILY 08/01/24 08/01/24 History HYDROcodone/APAP 5-325MG [[place] 1 tab PO TID PRN 08/01/24 08/01/24 History 5-325] Isosorbide Mononitrate ER [Imdur] 60 mg PO DAILY 08/01/24 08/01/24 History Ondansetron [Zofran] 4 mg PO Q6H PRN 08/01/24 08/01/24 History Rosuvastatin [Crestor] 20 mg PO HS 08/01/24 08/01/24 History Tamsulosin [Flomax] 0.4 mg PO DAILY 08/01/24 08/01/24 History glipiZIDE XL [Glucotrol XL] 5 mg PO DAILY 08/01/24 08/01/24 History metFORMIN HCL [Glucophage] 1,000 mg PO BID 08/01/24 08/01/24 History Metoprolol Succinate (ER) [Toprol 25 mg PO DAILY #0 08/02/24 08/01/24 Rx XL] Pantoprazole [Protonix] 40 mg PO DAILY #14 tab 08/02/24 Rx lisinopriL [Zestril] 10 mg PO DAILY #0 08/02/24 08/01/24 Rx Allergies Allergy/AdvReac Type Severity Reaction Status Date / Time No Known Allergies Allergy Verified 08/01/24 14:04 Physical Exam Vitals: Vital Signs Temp Pulse Resp BP Pulse Ox 08/02/24 06:18 97.2 F L 48 L 14 113/68 96 08/02/24 03:02 98.0 F 48 L 16 110/63 97 08/02/24 01:00 45 L 19 113/70 98 08/01/24 21:07 49 L 18 130/78 96 08/01/24 17:11 47 L 18 134/80 99 08/01/24 11:40 43 L 20 123/74 98 08/01/24 09:39 97.4 F L 53 L 18 142/77 100 Results 08/01/24 10:02 08/01/24 10:02 Cardiac Enzymes 08/01/24 08/01/24 08/01/24 Range/Units 10:02 14:28 21:12 AST 26 (17-59) U/L Troponin I <0.012 <0.012 (0.000-0.034) ng/mL CBC 08/01/24 Range/Units 10:02 WBC 9.7 (3.8-10.6) k/uL RBC 5.52 (4.30-5.90) m/uL Hgb 16.0 (13.0-17.5) gm/dL Hct 50.2 (39.0-53.0) % Plt Count 240 (150-450) k/uL Comprehensive Metabolic Panel 08/01/24 Range/Units 10:02 Sodium 143 (137-145) mmol/L Potassium 4.1 (3.5-5.1) mmol/L Chloride 106 (98-107) mmol/L Carbon Dioxide 27 (22-30) mmol/L BUN 12 (9-20) mg/dL Creatinine 0.86 (0.66-1.25) mg/dL Glucose 143 H (74-99) mg/dL Calcium 9.8 (8.4-10.2) mg/dL AST 26 (17-59) U/L ALT 27 (4-49) U/L Alkaline Phosphatase 64 (38-126) U/L Total Protein 6.9 (6.3-8.2) g/dL Albumin 4.3 (3.5-5.0) g/dL Current Medications Generic Name Dose Route Start Last Admin Trade Name Freq PRN Reason Stop Dose Admin Hydrocodone Bitart/Acetaminophen 1 each 08/01/24 16:55 08/02/24 01:07 Hydrocodone/Apap 5-325mg 1 Each Tab PO 1 each TID PRN Administration Pain Atorvastatin Calcium 40 mg 08/01/24 21:00 08/01/24 21:10 Atorvastatin 40 Mg Tab PO 40 mg HS PASTOR Administration Hydromorphone HCl 0.5 mg 08/01/24 16:58 08/02/24 06:23 Hydromorphone 0.5 Mg/0.5 Ml Syringe IVP 0.5 mg Q6HR PRN Administration Severe Pain (Scale 7 to 10) Dextrose/Sodium Chloride 1,000 mls @ 100 mls/hr 08/01/24 20:15 08/02/24 06:24 Dextrose 5%-1/2ns Iv Soln IV 100 mls/hr .Q10H PASTOR Administration Ondansetron HCl 4 mg 08/01/24 16:59 08/02/24 01:06 Ondansetron 4 Mg/2 Ml Vial IVP 4 mg Q6HR PRN Administration Nausea And Vomiting Tamsulosin HCl 0.4 mg 08/02/24 09:00 Tamsulosin 0.4 Mg Cap.Er.24h PO DAILY [facility] 08/01/24 10:02 08/01/24 10:02
[2024-08-03] MEDS ORDERED: CLOPIDOGREL 75 MG TAB PO SCH (09:00)
== END 2024-08-02 15:06 | disposition home or self-care (01) ==
LOC: EC 09:39 → 3SCARD 14:07
PROVIDERS: ADMIT Hospitalist; ATTEND Hospitalist
DX: R10.13 Epigastric pain (principal); R00.1 Bradycardia, unspecified; I95.9 Hypotension, unspecified; I25.10 Atherosclerotic heart disease of native coronary artery without angina pectoris; I10 Essential (primary) hypertension; E78.5 Hyperlipidemia, unspecified; E11.9 Type 2 diabetes mellitus without complications; G47.33 Obstructive sleep apnea (adult) (pediatric); I34.0 Nonrheumatic mitral (valve) insufficiency; Z95.5 Presence of coronary angioplasty implant and graft; Z79.02 Long term (current) use of antithrombotics/antiplatelets; Z79.84 Long term (current) use of oral hypoglycemic drugs; Z79.899 Other long term (current) drug therapy
CPT/HCPCS: 96376 ×2; 96361; 96374; 96375 ×2; 99285; 36415; 80053; 82150; 83605; 83690; 84484; 85025; 76705; 74177; G0378 ×2; J2060; J2765; J2405 ×2; J1171 ×2; Q9967; J2470